=== PATIENT | female | born 1930 | race Caucasian/White ===

== ENCOUNTER 2016-11-20 16:42 | Inpatient (IN) | payer MEDICARE ==
[~2016-11-20] VITALS: Ht 152.4 cm; Wt 48.1 kg
[2016-11-20 17:19] VITALS: BP 158/101
[2016-11-20] MEDS ORDERED: LATA2.5D7 EACHEYE (17:23)
[2016-11-20] MEDS ORDERED: TIMO5DRO4 EACHEYE (17:23)
[2016-11-20] MEDS ORDERED: MAGNESIUM HYDROXIDE 30 ML UDC PO PRN (17:30)
[2016-11-20] MEDS ORDERED: ACETAMINOPHEN 325 MG TABLET PO PRN (17:30)
[2016-11-20] MEDS ORDERED: MAG HYDROX/AL HYDROX/SIMETH 30 ML UDC PO PRN (17:30)
[2016-11-20] MEDS ORDERED: LORAZEPAM 0.5 MG TABLET PO PRN (18:00)
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
[2016-11-20 20:00] VITALS: BP 156/78
[2016-11-21 07:42] LABS: ALBUMIN 3.8 g/dL (3.4-5.0); BILIRUBIN,TOTAL 0.7 mg/dL (0.2-1.0); CALCIUM, SERUM 9.3 mg/dL (8.5-10.1); CREATININE 0.8 mg/dL (0.6-1.3); POTASSIUM 3.3 mmol/L (3.5-5.1); TOTAL PROTEIN, SERUM 7.3 g/dL (6.4-8.2)
[2016-11-21 08:39] VITALS: BP 152/82
[2016-11-21] MEDS ORDERED: POTASSIUM CHLORIDE 20 MEQ TAB.PRT.SR PO ONE ×2 (11:00→14:00)
[2016-11-21] MEDS: DIVALPROEX SODIUM 125 MG CAP.SPRINK PO SCH ×2 (11:19→21:21)
[2016-11-21] MEDS: TIMOLOL 0.5% SOLN OPHTH 5 ML BOTTLE EACHEYE SCH ×2 (11:19→17:02)
[2016-11-21] MEDS: QUETIAPINE FUMARATE 25 MG TABLET PO SCH ×2 (11:19→17:01)
[2016-11-21] MEDS ORDERED: TIMOLOL 0.5% SOLN OPHTH 5 ML BOTTLE EACHEYE SCH (14:00)
[2016-11-21] MEDS ORDERED: LATANOPROST EYE DROP 0.005% 2.5 ML BOTTLE EACHEYE SCH (14:00)
[2016-11-21 16:20] VITALS: BP 137/69
[2016-11-21 20:00] VITALS: BP 98/55
[2016-11-21] MEDS: LATANOPROST EYE DROP 0.005% 2.5 ML BOTTLE EACHEYE SCH (22:24)
[2016-11-21] MEDS: TEMAZEPAM 7.5 MG CAPSULE PO PRN (22:25)
[2016-11-22 07:24] LABS: BASOPHILS % (AUTO) 0.4 % (0.0-2.0); EOSINOPHILS # (AUTO) 0.1 /CMM (0.0-0.7); HEMATOCRIT 37 % (33-45); HEMOGLOBIN 12.3 g/dL (11.5-14.8); LYMPHOCYTES # (AUTO) 1.9 /CMM (0.8-4.8); MEAN CORPUSCULAR HEMOGLOBIN 31 PG (26.0-33.0); MEAN CORPUSCULAR HGB CONC 34 g/dl (31.0-36.0); MEAN CORPUSCULAR VOLUME 92 fL (82-100); MONOCYTES # (AUTO) 0.5 /CMM (0.1-1.30); MONOCYTES % (AUTO) 9.8 % (2.0-12.0); NEUTROPHILS % (AUTO) 54.8 % (43.0-81.0); PLATELET COUNT (AUTO) 148 /CMM (150-450); RDW COEFFICIENT OF VARIATION 13.1 (11.5-15.0); RED BLOOD CELL COUNT(AUTO) 3.96 MIL/uL (4.0-5.2); WHITE BLOOD COUNT (AUTO) 5.5 K/uL (4.3-11.0)
[2016-11-22 07:41] LABS: CALCIUM, SERUM 8.6 mg/dL (8.5-10.1); CREATININE 0.7 mg/dL (0.6-1.3); MAGNESIUM 1.5 mg/dL (1.8-2.4); POTASSIUM 4.2 mmol/L (3.5-5.1)
[2016-11-22 08:00] VITALS: BP 106/61
[2016-11-22] MEDS: DIVALPROEX SODIUM 125 MG CAP.SPRINK PO SCH ×2 (08:22→21:32)
[2016-11-22] MEDS: QUETIAPINE FUMARATE 25 MG TABLET PO SCH ×2 (08:22→17:28)
[2016-11-22] MEDS: TIMOLOL 0.5% SOLN OPHTH 5 ML BOTTLE EACHEYE SCH ×2 (08:26→17:28)
[2016-11-22 16:00] VITALS: BP 147/94
--- NOTE | 2016-11-22 16:20 | NUR ---
GPS RN NOTE: DR SELBY NOTIFIED OF TODAY LABS NO NEW ORDERS WILL CONTINUE MONITORING
[2016-11-22 20:21] VITALS: BP 117/67
[2016-11-22] MEDS: LATANOPROST EYE DROP 0.005% 2.5 ML BOTTLE EACHEYE SCH (21:32)
--- NOTE | 2016-11-23 01:08 | NUR ---
Pt has been anxious, confused, disorganized, & fragmented but pleasant on approach. She is med compliant w/o any promptings.
[2016-11-23 08:00] VITALS: BP 148/84
[2016-11-23] MEDS: DIVALPROEX SODIUM 125 MG CAP.SPRINK PO SCH ×2 (08:18→21:31)
[2016-11-23] MEDS: QUETIAPINE FUMARATE 25 MG TABLET PO SCH ×2 (08:19→17:37)
[2016-11-23] MEDS: TIMOLOL 0.5% SOLN OPHTH 5 ML BOTTLE EACHEYE SCH ×2 (08:20→17:37)
[2016-11-23 08:25] LABS: CALCIUM, SERUM 8.9 mg/dL (8.5-10.1); CREATININE 0.8 mg/dL (0.6-1.3); MAGNESIUM 1.7 mg/dL (1.8-2.4); POTASSIUM 3.9 mmol/L (3.5-5.1)
[2016-11-23] MEDS: MAGNESIUM OXIDE 400 MG TABLET PO SCH ×2 (11:18→21:31)
--- NOTE | 2016-11-23 11:20 | NUR ---
CALLED SPOKE TO [facility], MAGNESIUM OXIDE ORDERS START 11/23/[address] SELBY. MAGNESIUM SUPPLEMENTED ORDERED.
--- NOTE | 2016-11-23 15:36 | NUR ---
Initial discharge plan: Pt. resides with her daughter, [place] [phone] [place] [address] [facility] [address] and is able to return when stable. Pt's daughter will pick her up when ready for discharge. SW will follow up with MD and family and will help form safe and proper discharge.
[2016-11-23 16:00] VITALS: BP 127/80
--- NOTE | 2016-11-23 17:03 | NUR ---
REVIEWED VACCINATION STATUS WITH THE PATIENT. PATIENT REFUSING FLU AND PNA VACCINES, EXPLAINED IMPORTANCE, RISK AND BENEFITS OF THE VACCINE, PATIENT STILL REFUSED X3.
--- NOTE | 2016-11-23 18:46 | NUR ---
RN CLOSING NOTES PATIENT IS AWAKE, SITTING UP IN BED. NOT IN DISTRESS. NO C/O PAIN OR ANY DISCOMFORT. CONTINUE GPS CARE ORDERED, ON 5250 HOLD. CALL LIGHT WITHIN REACH. WILL ENDORSE TO MERCER[employer]ER MACHINE OPERATOR RN FOR CONTINUITY OF CARE.
[2016-11-23] MEDS: LATANOPROST EYE DROP 0.005% 2.5 ML BOTTLE EACHEYE SCH (21:31)
[2016-11-23 22:50] VITALS: BP 144/61
[2016-11-24] MEDS: DIVALPROEX SODIUM 125 MG CAP.SPRINK PO SCH ×2 (08:22→21:13)
[2016-11-24] MEDS: QUETIAPINE FUMARATE 25 MG TABLET PO SCH ×3 (08:23→16:33)
[2016-11-24] MEDS: TIMOLOL 0.5% SOLN OPHTH 5 ML BOTTLE EACHEYE SCH ×2 (08:24→16:34)
[2016-11-24 08:39] VITALS: BP 140/67
[2016-11-24 16:56] VITALS: BP 129/67
[2016-11-24 20:39] VITALS: BP_SYST 125; BP_SYST 129; BP_DIAS 67; BP_DIAS 69
[2016-11-24] MEDS: LATANOPROST EYE DROP 0.005% 2.5 ML BOTTLE EACHEYE SCH (21:12)
[2016-11-24] MEDS: TEMAZEPAM 7.5 MG CAPSULE PO PRN (21:13)
[2016-11-24] MEDS: MAGNESIUM OXIDE 400 MG TABLET PO SCH (21:13)
[2016-11-25 08:00] VITALS: BP 135/76
[2016-11-25] MEDS: QUETIAPINE FUMARATE 25 MG TABLET PO SCH ×3 (08:29→17:13)
[2016-11-25] MEDS: DIVALPROEX SODIUM 125 MG CAP.SPRINK PO SCH ×2 (08:29→21:06)
[2016-11-25] MEDS: TIMOLOL 0.5% SOLN OPHTH 5 ML BOTTLE EACHEYE SCH ×2 (08:30→17:13)
[2016-11-25 16:00] VITALS: BP 113/58
[2016-11-25 20:09] VITALS: BP 106/67
[2016-11-25] MEDS: MAGNESIUM OXIDE 400 MG TABLET PO SCH (21:06)
[2016-11-25] MEDS: LATANOPROST EYE DROP 0.005% 2.5 ML BOTTLE EACHEYE SCH (21:06)
[2016-11-26 08:00] VITALS: BP 122/72
[2016-11-26] MEDS: DIVALPROEX SODIUM 125 MG CAP.SPRINK PO SCH ×2 (08:17→20:11)
[2016-11-26] MEDS: QUETIAPINE FUMARATE 25 MG TABLET PO SCH ×3 (08:17→16:12)
[2016-11-26] MEDS: TIMOLOL 0.5% SOLN OPHTH 5 ML BOTTLE EACHEYE SCH ×2 (08:18→16:12)
[2016-11-26 16:00] VITALS: BP 131/63
[2016-11-26 20:00] VITALS: BP 126/71
[2016-11-26] MEDS: TEMAZEPAM 7.5 MG CAPSULE PO PRN (22:19)
[2016-11-26] MEDS: LATANOPROST EYE DROP 0.005% 2.5 ML BOTTLE EACHEYE SCH (22:19)
[2016-11-26] MEDS: MAGNESIUM OXIDE 400 MG TABLET PO SCH (22:19)
[2016-11-27 08:00] VITALS: BP 140/76
[2016-11-27] MEDS: TIMOLOL 0.5% SOLN OPHTH 5 ML BOTTLE EACHEYE SCH ×2 (08:09→16:48)
[2016-11-27] MEDS: DIVALPROEX SODIUM 125 MG CAP.SPRINK PO SCH ×2 (08:10→21:36)
[2016-11-27] MEDS: QUETIAPINE FUMARATE 25 MG TABLET PO SCH ×2 (08:10→16:48)
[2016-11-27 08:26] VITALS: BP 140/76
[2016-11-27 16:48] VITALS: BP 104/61
[2016-11-27 20:27] VITALS: BP 104/57
[2016-11-27] MEDS: MAGNESIUM OXIDE 400 MG TABLET PO SCH (22:09)
[2016-11-27] MEDS: LATANOPROST EYE DROP 0.005% 2.5 ML BOTTLE EACHEYE SCH (22:09)
[2016-11-27] MEDS: TEMAZEPAM 7.5 MG CAPSULE PO PRN (22:09)
[2016-11-28 07:09] LABS: BASOPHILS % (AUTO) 0.5 % (0.0-2.0); EOSINOPHILS % (AUTO) 0.9 % (0.0-6.0); HEMATOCRIT 36 % (33-45); HEMOGLOBIN 12.2 g/dL (11.5-14.8); LYMPHOCYTES # (AUTO) 1.6 /CMM (0.8-4.8); LYMPHOCYTES % (AUTO) 37.5 % (20.0-44.0); MEAN CORPUSCULAR HEMOGLOBIN 32 PG (26.0-33.0); MEAN CORPUSCULAR HGB CONC 34 g/dl (31.0-36.0); MEAN CORPUSCULAR VOLUME 92 fL (82-100); MONOCYTES # (AUTO) 0.5 /CMM (0.1-1.30); MONOCYTES % (AUTO) 11.7 % (2.0-12.0); NEUTROPHILS # (AUTO) 2.1 /CMM (1.8-8.9); NEUTROPHILS % (AUTO) 49.4 % (43.0-81.0); PLATELET COUNT (AUTO) 152 /CMM (150-450); RDW COEFFICIENT OF VARIATION 12.9 (11.5-15.0); RED BLOOD CELL COUNT(AUTO) 3.88 MIL/uL (4.0-5.2); WHITE BLOOD COUNT (AUTO) 4.2 K/uL (4.3-11.0)
[2016-11-28 07:12] LABS: CALCIUM, SERUM 8.8 mg/dL (8.5-10.1); CREATININE 0.7 mg/dL (0.6-1.3); POTASSIUM 4.5 mmol/L (3.5-5.1)
--- NOTE | 2016-11-28 07:40 | NUR ---
RECEIVED PT. IN AM VS STABLE,MED COMPLIANT,COOPERATIVE.NO DISTRESS.CONFUSED,PLEASANT.
[2016-11-28 08:45] VITALS: BP 139/81
[2016-11-28] MEDS: QUETIAPINE FUMARATE 25 MG TABLET PO SCH (09:29)
[2016-11-28] MEDS: DIVALPROEX SODIUM 125 MG CAP.SPRINK PO SCH (09:29)
[2016-11-28] MEDS: TIMOLOL 0.5% SOLN OPHTH 5 ML BOTTLE EACHEYE SCH (09:29)
--- NOTE | 2016-11-28 11:00 | NUR ---
DISCHARGE PHOTOS TAKEN,TOLERATED WELL.PHOTOS TO CHART.
--- NOTE | 2016-11-28 12:14 | NUR ---
GPS/RN PT LEFT VIA W/C TO THE PRIVATE CAR ACCOMPANIED BY DAUGHTER ANGELO AND LINOLEUM TILE LAYER CAITLIN. PRESCRIPTIONS, EXIT CARE GIVEN TO PT'S DAUGHTER AND UNDERSTOOD. BELONGINGS RETURNED. NO SI OR HI AT THE TIME OF DISCHARGE. VSS, NO ACUTE DISTRESS NOTED.
== END 2016-11-28 12:15 | disposition home or self-care (01) | DRG 885 ==
LOC: GPS 16:42
PROVIDERS: ADMIT Psychiatry & Neurology Psychiatry; ATTEND Nurse Practitioner Acute Care
DX: F29 Unspecified psychosis not due to a substance or known physiological condition (principal); N17.0 Acute kidney failure with tubular necrosis; F39 Unspecified mood [affective] disorder; F10.10 Alcohol abuse, uncomplicated; E78.5 Hyperlipidemia, unspecified; E87.6 Hypokalemia; F03.90 Unspecified dementia, unspecified severity, without behavioral disturbance, psychotic disturbance, mood disturbance, and anxiety; H40.9 Unspecified glaucoma; E83.42 Hypomagnesemia; I70.90 Unspecified atherosclerosis
CPT/HCPCS: 36415; 80048-TC; 80053-TC; 80061-TC; 83735-TC; 84300-TC; 85025-TC